=== PATIENT | female | born 1980 | race Caucasian/White ===

== ENCOUNTER 2025-02-20 14:42 | Outpatient (CLI) | payer OTHER, SELFPAY ==
--- NOTE | ~2025-02-20 | MM_ITS ---
EXAMINATION: MM scrn andrew implant BI w skylar HISTORY: Screening. TECHNIQUE: Craniocaudal and mediolateral oblique 3-D tomosynthesis images were obtained and synthetic 2-D images were generated. CAD analysis was submitted and interpreted. COMPARISON: None available. BREAST PARENCHYMAL COMPOSITION: Dense: The breasts are extremely dense There is/are retropectoral silicone implants. The presence of implants decreases the sensitivity of mammography. FINDINGS: No suspicious masses are seen. There are no suspicious calcifications. No unexplained architectural distortion is seen. There are no skin or nipple abnormalities identified. There is no adenopathy seen on the images submitted. IMPRESSION: No mammographic evidence to suggest malignancy is seen. The patient may return to screening mammography as per ACR guidelines. BI-RADS 1 - Negative. Reviewed, dictated and finalized at location C[facility]
== END 2025-02-20 14:43 | disposition home or self-care (01) ==
LOC: CHSIMG 14:44
PROVIDERS: PCP Nurse Practitioner Family; Visit Provider Nurse Practitioner Family
DX: Z12.31 Encounter for screening mammogram for malignant neoplasm of breast (principal)
CPT/HCPCS: 77063; 77067